=== PATIENT | female | born 1990 | race Caucasian/White ===

== ENCOUNTER 2017-02-02 03:20 | Inpatient (IN) | payer BC ==
[2017-02-02] MEDS ORDERED: Oxytocin 10 Units/1 ML SDV IM ONE (04:48)
[2017-02-02] MEDS ORDERED: Sodium Chloride 0.9% 10 ML Syringe FLUSH PRN (04:48)
[2017-02-02] MEDS ORDERED: Oxytocin/Lactated Ringers 10 UNIT/1,000 ML BAG IV SCH ×2 (05:00→05:30)
[2017-02-02] MEDS ORDERED: Penicillin G Potassium 5 MILLUNITS in Sodium Chloride 0.9% 100 ML IV SCH (05:00)
[2017-02-02] MEDS ORDERED: Lactated Ringers 1,000 ML IV SCH (05:00)
--- NOTE | 2017-02-02 05:01 | PCM.LDHP ---
L&D History of Present Illness - General Date of Service: 02/02/17 Admit Problem/Dx: Patient Status Order with Admit Dx/Problem 02/02/17 04:48 Patient Status [ADT] Routine Admission Diagnosis/Problem Admission Diagnosis/Problem Premature rupture of membranes 02/02/17 04:55 27 yo at 36 1/7 presents to labor and delivery with SROM at home, clear fluid, no contractions, good movement. Routine and uncomplicated pregnatal care. Dates based on certain LMP and within 2 days of 20 week Ultrasound. Pt is on Zoloft for anxiety, started this . AB neg GBS unresulted OBhx: Vaginal delivery at 39 6/7 in 201302/02/17 05:04 Source of Information: Patient History Limitations: Reports: No Limitations - Related Data Allergies/Adverse Reactions: Allergies Allergy/AdvReac Type Severity Reaction Status Date / Time No Known Allergies Allergy Verified 06/18/13 01:29 Home Medications: Home Meds Ferrous Sulfate [Iron] 1 tab PO DAILY 06/18/13 [History] PNV95/Ferrous Fumarate/FA [ Tablet] 1 tab PO DAILY 06/18/13 [History] Ibuprofen [Motrin] 600 mg PO Q4H PRN #60 tablet 06/21/13 [Rx] Past Medical History - Past Surgical History HEENT Surgical History: Reports: Oral Surgery (wisdom teeth) Social & Family History - Family History Respiratory: Reports: Asthma - Tobacco Use Second Hand Smoke Exposure: No - Recreational Drug Use Recreational Drug Use: No H&P Review of Systems - Review of Systems: Review Of Systems: See Below General: Reports: No Symptoms HEENT: Reports: No Symptoms Pulmonary: Reports: No Symptoms Cardiovascular: Reports: No Symptoms Gastrointestinal: Reports: No Symptoms Genitourinary: Reports: No Symptoms Musculoskeletal: Reports: No Symptoms Skin: Reports: No Symptoms Psychiatric: Reports: No Symptoms Neurological: Reports: No Symptoms Hematologic/Lymphatic: Reports: No Symptoms Immunologic: Reports: No Symptoms L&D Exam - Exam Exam: See Below - OB Specific Contraction Duration (sec): irregular Contraction Intensity: Mild Movement: Active Heart Tones: Present Heart Tones per Min: 150 Heart Rate (FHR) Variability: Moderate (6-25 bmp) Presentation: Vertex Estimated Weight: 3200 - Raya Score Raya Score Cervix Position: Midposition Raya Score Consistency: Soft Raya Score Effacement: 0-30% Raya Score Dilation: 1-2 cm Raya Score 's Station: -3 Raya Score Total: 4 - Exam General: Alert, Oriented HEENT: Conjunctiva Clear GI/Abdominal Exam: Normal Bowel Sounds Genitourinary: Normal external exam Skin: Warm, Dry Psychiatric: Alert, Normal Mood Problem List Initiated/Reviewed/Updated: Yes Orders Last 24hrs: Active Orders 24 hr Category Date Time Status Patient Status [ADT] Routine ADT 02/02/17 04:48 Ordered Activity as Tolerated [RC] PFP Care 02/02/17 04:48 Ordered Communication Order [RC] ASDIRECTED Care 02/02/17 04:48 Ordered Communication Order [RC] ASDIRECTED Care 02/02/17 04:48 Ordered Communication Order [RC] ASDIRECTED Care 02/02/17 04:48 Ordered Communication Order [RC] ASDIRECTED Care 02/02/17 04:48 Ordered Heart Tones [RC] ASDIRECTED Care 02/02/17 04:49 Ordered Monitoring [RC] INTERMITTENT Care 02/02/17 04:48 Ordered Notify Provider [RC] ASDIRECTED Care 02/02/17 04:48 Ordered Notify Provider [RC] PFP Care 02/02/17 04:48 Ordered Notify Provider [RC] PRN Care 02/02/17 04:48 Ordered Peripheral IV Care [RC] . DIRECTED Care 02/02/17 04:49 Ordered Vaginal Exam [RC] ASDIRECTED Care 02/02/17 04:48 Ordered Vital Signs [RC] ASDIRECTED Care 02/02/17 04:48 Ordered Vital Signs [RC] PER UNIT ROUTINE Care 02/02/17 04:48 Ordered Nothing Per Oral Diet [DIET] Diet 02/02/17 Lunch Ordered CBC W/O DIFF,HEMOGRAM [HEME] Stat Lab 02/02/17 04:48 Ordered Lactated Ringers [Ringers, Lactated] 1,000 ml Med 02/02/17 05:00 Ordered IV ASDIRECTED Lactated Ringers [Ringers, Lactated] 1,000 ml Med 02/02/17 05:00 Ordered IV ASDIRECTED Oxytocin [Pitocin] Med 02/02/17 04:48 Once 10 unit IM ONETIME ONE Oxytocin/Lactated Ringers [Pitocin in LR 10 Units/1,000 Med 02/02/17 05:00 Ordered ML] 10 unit in 1,000 ml IV TITRATE Penicillin G Potassium [Pfizerpen] 2.5 millunits Med 02/02/17 05:00 Ordered Sodium Chloride 0.9% [Normal Saline] 100 ml IV Q4H Penicillin G Potassium [Pfizerpen] 5 millunits Med 02/02/17 05:00 Ordered Sodium Chloride 0.9% [Normal Saline] 100 ml IV ONETIME Sodium Chloride 0.9% [Saline Flush] Med 02/02/17 04:48 Ordered 10 ml FLUSH ASDIRECTED PRN Electronic Heart Tones Ext w TOCO [WOMSER] Ot 02/02/17 04:48 Ordered Routine Electronic Heart Tones Internal [WOMSER] Per Unit Ot 02/02/17 04:48 Ordered Routine Peripheral IV Insertion Adult [OM.PC] Routine Ot 02/02/17 04:48 Ordered Peripheral IV Insertion Adult [OM.PC] Routine Ot 02/02/17 04:48 Ordered Resuscitation Status Routine Resus Stat 02/02/17 04:48 Ordered Assessment/Plan Comment:: 27 yo at 36 1/7 with PROM at home. Plan: Infant is cephalic on exam. GBS not resulted-start penicillin for prophylaxis. PROM-start pitocin-discussed with pt need to start induce labor at this time with SROM and no contractions. she voices understanding. Pt understands increased risk of infection with prolonged ROM as well as increased risk of section with PROM. she voices understanding.
[2017-02-02] MEDS: Lactated Ringers 1,000 ML IV SCH ×3 (07:38→13:08)
--- NOTE | 2017-02-02 08:43 | PCM.PNLD ---
Labor Progress Note - VS & Meds Vital Signs: Last Vital Signs Temp 98.4 F 02/02/17 03:58 Pulse 97 02/02/17 03:58 Resp 20 02/02/17 03:58 BP 124/80 02/02/17 03:58 Pulse Ox 98 02/02/17 03:58 Active Medications: Current Medications Lactated Ringer's (Ringers, Lactated) 1,000 mls @ 100 mls/hr IV ASDIRECTED JUAN Last Admin: 02/02/17 07:38 Dose: 100 mls/hr Lactated Ringer's (Ringers, Lactated) 1,000 mls @ 40 mls/hr IV ASDIRECTED JUAN Last Admin: 02/02/17 05:44 Dose: 40 mls/hr Oxytocin/Lactated Ringer's (Pitocin In Lr 10 Units/1,000 Ml) 10 unit in 1,000 mls @ 12 mls/hr IV TITRATE JUAN; 2 MUNITS/MIN PRN Reason: Protocol Penicillin G Potassium 5 (millunits/ Sodium Chloride) 100 mls @ 55 mls/hr IV ONETIME JUAN Last Admin: 02/02/17 05:45 Dose: 55 mls/hr Penicillin G Potassium 2.5 (millunits/ Sodium Chloride) 100 mls @ 55 mls/hr IV Q4H JUAN Oxytocin/Lactated Ringer's (Pitocin In Lr 10 Units/1,000 Ml) 10 unit in 1,000 mls @ 12 mls/hr IV TITRATE JUAN; 2 MUNITS/MIN PRN Reason: Protocol Last Titration: 02/02/17 06:32 Dose: 0 munits/min, 0 mls/hr Sodium Chloride (Saline Flush) 10 ml FLUSH ASDIRECTED PRN PRN Reason: Keep Vein Open Discontinued Medications Oxytocin (Pitocin) 10 unit IM ONETIME ONE Stop: 02/02/17 04:49 - Uterine Contractions Contraction Frequency (min): Every 15 minutes Contraction Duration (sec): irregular Contraction Intensity: Mild - Monitoring Monitor Mode: Doppler/Auscultation Heart Rate (FHR) Variability: Moderate (6-25 bmp) - Vaginal Exam Dilation (cm): 2+ Effacement (Percent): 90 Station: -3 Cervical Position: Midposition Sterile Vaginal Exam Performed By: Jennifer Garza - Labor Progress (Free Text) Labor Progress: The patient is a 27-yo 36 1/7 weeks. She presented to L&D around 5am. She reports spontaneous rupture of membranes while sleeping last night. She is having mild contractions, but appears to be comfortable. She is accompanied by her , Medhat. She delivered her first baby at 39 6/7 weeks. Her first labor lasted about 36 hours. Baby was 3.033 kg (6 lb 11 oz). She is AB negative and antibody negative. She received Rhogam at 27 weeks. AmniSure is positive. She is leaking pink-tinged amniotic fluid. No meconium staining. She is receiving Pitocin 2 miliunits/min IV per protocol. There were a heart decelerations earlier this morning, but heart tones show good variability at this time. Her Group B Strep status is unknown. She received her first dose of Penicillin G. She will receive her second dose at 09:00. She received an epidural with her previous delivery. She is open to an epidural with this delivery. She is taking Sertraline 50mg per depression. Her depressive symptoms began during this . She did not have baby blues of pp depression with her previous . She denies FH of bleeding/clotting disorders or congenital heart disease. Assessment: 1. intrauterine at 36 1/7 weeks gestation, spontaneous rupture membranes in early labor 2. Group B strep positive status 3. Patient desires epidural Plan: 1. Anticipate normal spontaneous vaginal delivery. Pitocin augmentation as indicated 2. Group B strep prophylaxis per protocol with penicillin G 3. Epidural per patient request 4. CBC
[2017-02-02] MEDS: Penicillin G Potassium 2.5 MILLUNITS in Sodium Chloride 0.9% 100 ML IV SCH ×2 (09:22→13:07)
[2017-02-02] MEDS ORDERED: ePHEDrine 50 MG/ML SDV IVPUSH PRN (11:01)
[2017-02-02] MEDS ORDERED: Ondansetron 4 MG/2 ML SDV IVPUSH PRN (11:01)
[2017-02-02] MEDS ORDERED: fentaNYL 100 MCG/2 ML SDV EPIDUR PRN (11:01)
--- NOTE | 2017-02-02 11:04 | PCM.PREANE ---
Preanesthetic Assessment - Anesthesia/Transfusion/Family Hx Anesthesia History: Prior Anesthesia Without Reaction Family History of Anesthesia Reaction: No Transfusion History: No Prior Transfusion(s) Intubation History: Unknown - Review of Systems General: No Symptoms Pulmonary: No Symptoms Cardiovascular: No Symptoms Gastrointestinal: No Symptoms (GERD), Nausea Neurological: No Symptoms Other: Reports: Sinus Problem (runny nose/ deviated septum), Depression, Anxiety - Physical Assessment NPO Status Date: 02/02/17 NPO Status Time: 08:00 Pulse: 97 O2 Sat by Pulse Oximetry: 98 Respiratory Rate: 20 Blood Pressure: 124/80 Temperature: 36.9 C Vital Signs: Last Vital Signs Temp 36.9 C 02/02/17 03:58 Pulse 97 02/02/17 03:58 Resp 20 02/02/17 03:58 BP 124/80 02/02/17 03:58 Pulse Ox 98 02/02/17 03:58 Height: 1.6 m Weight: 92.896 kg ASA Class: 2 Mental Status: Alert & Oriented x3 Airway Class: Mallampati = 2 Dentition: Reports: Normal Dentition, Caries Thyro-Mental Finger Breadths: 3 Mouth Opening Finger Breadths: 3 ROM/Head Extension: Full Lungs: Clear to Auscultation, Normal Respiratory Effort Cardiovascular: Regular Rate, Regular Rhythm, No Murmurs - Lab Values: Laboratory Last Values WBC 13.43 K/mm3 (3.98-10.04) H 02/02/17 05:10 RBC 4.13 M/mm3 (3.98-5.22) 02/02/17 05:10 Hgb 10.6 gm/L (11.2-15.7) L 02/02/17 05:10 Hct 32.6 % (34.1-44.9) L 02/02/17 05:10 MCV 78.9 fl (79.4-94.8) L 02/02/17 05:10 MCH 25.7 pg (25.6-32.2) 02/02/17 05:10 MCHC 32.5 g/dl (32.2-35.5) 02/02/17 05:10 RDW Std Deviation 39.0 fL (36.4-46.3) 02/02/17 05:10 Plt Count 227 K/mm3 (182-369) 02/02/17 05:10 MPV 10.2 fl (9.4-12.3) 02/02/17 05:10 Above labs reviewed and noted - Allergies Allergies/Adverse Reactions: Allergies Allergy/AdvReac Type Severity Reaction Status Date / Time No Known Allergies Allergy Verified 06/18/13 01:29 - Anesthesia Plan Pre-Op Medication Ordered: None - Acknowledgements Anesthesia Type Planned: Epidural Pt an Appropriate Candidate for the Planned Anesthesia: Yes Alternatives and Risks of Anesthesia Discussed w Pt/Guardian: Yes Pt/Guardian Understands and Agrees with Anesthesia Plan: Yes 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: - Past Surgical History HEENT Surgical History: Reports: Oral Surgery - SUBSTANCE USE Smoking Status *Q: Never Smoker Second Hand Smoke Exposure: No Recreational Drug Use History: No - HOME MEDS Home Medications: Home Meds Ferrous Sulfate [Iron] 1 tab PO DAILY 06/18/13 [History] PNV95/Ferrous Fumarate/FA [ Tablet] 1 tab PO DAILY 06/18/13 [History] Ibuprofen [Motrin] 600 mg PO Q4H PRN #60 tablet 06/21/13 [Rx] - CURRENT (IN HOUSE) MEDS Current Meds: Current Medications Lactated Ringer's (Ringers, Lactated) 1,000 mls @ 100 mls/hr IV ASDIRECTED JUAN Last Admin: 02/02/17 10:53 Dose: 100 mls/hr Lactated Ringer's (Ringers, Lactated) 1,000 mls @ 40 mls/hr IV ASDIRECTED JUAN Last Admin: 02/02/17 05:44 Dose: 40 mls/hr Oxytocin/Lactated Ringer's (Pitocin In Lr 10 Units/1,000 Ml) 10 unit in 1,000 mls @ 12 mls/hr IV TITRATE JUAN; 2 MUNITS/MIN PRN Reason: Protocol Penicillin G Potassium 5 (millunits/ Sodium Chloride) 100 mls @ 55 mls/hr IV ONETIME JUAN Last Admin: 02/02/17 05:45 Dose: 55 mls/hr Penicillin G Potassium 2.5 (millunits/ Sodium Chloride) 100 mls @ 55 mls/hr IV Q4H JUAN Last Admin: 02/02/17 09:22 Dose: 55 mls/hr Oxytocin/Lactated Ringer's (Pitocin In Lr 10 Units/1,000 Ml) 10 unit in 1,000 mls @ 12 mls/hr IV TITRATE JUAN; 2 MUNITS/MIN PRN Reason: Protocol Last Titration: 02/02/17 06:32 Dose: 0 munits/min, 0 mls/hr Sodium Chloride (Saline Flush) 10 ml FLUSH ASDIRECTED PRN PRN Reason: Keep Vein Open Discontinued Medications Oxytocin (Pitocin) 10 unit IM ONETIME ONE Stop: 02/02/17 04:49
[2017-02-02] MEDS ORDERED: Bupivacaine/fentaNYL/NS 100 ML Bag EPIDUR SCH (11:15)
[2017-02-02] MEDS ORDERED: Witch Hazel Medicated Pads 100/Jar TOP PRN (15:37)
[2017-02-02] MEDS ORDERED: Docusate Sodium 100 MG Cap PO PRN (15:37)
[2017-02-02] MEDS ORDERED: Lanolin 100% Cream 7 GM Tube TOP PRN (15:37)
[2017-02-02] MEDS ORDERED: Benzocaine/Menthol 20%-0.5% Spray 56 GM Canister TOP PRN (15:37)
--- NOTE | 2017-02-02 16:40 | PCM.SN ---
- Free Text/Narrative Note: Kristal is a 27-year-old 2 now para [birth year] white female who was admitted earlier this morning at 36-1/7 weeks gestational age with reports of spontaneous rupture membranes at 0230 hrs. on the date of delivery 02/02/2017. She is admitted into labor and delivery and found to have confirmed spontaneous rupture membranes with clear amniotic fluid. She is mariela minimally and therefore was augmented with Pitocin. She became completely dilated at approximately 1445 hrs. She pushed for about 4 contractions and then delivered a viable, calderon, male infant with Apgars of 8 and 9, a weight of 2720 g (5 pounds 15.9 ounces), a length of 18.5 inches at 1509 hrs. on 02/02/2017. Baby had a nuchal cord 1 which was reduced over the baby's body because it was moderately tight. The baby was placed on the mom's abdomen after delivery. The cord was clamped 2 and cut. No lacerations resulted. The placenta delivered intact, appeared complete and was discarded per patient desire.Estimated blood loss was 100 mL. Patient had Pitocin administered via IV after the baby delivered. She plans to breast-feed. Condition: Good
[2017-02-02] MEDS: Acetaminophen 325 MG Tab PO PRN (17:11)
--- NOTE | 2017-02-02 18:33 | PCM48HPAN ---
Post Anesthesia Note - EVALUATION WITHIN 48HRS OF ANESTHETIC Vital Signs in Normal Range: Yes Patient Participated in Evaluation: Yes Respiratory Function Stable: Yes Airway Patent: Yes Cardiovascular Function Stable: Yes Hydration Status Stable: Yes Pain Control Satisfactory: Yes Nausea and Vomiting Control Satisfactory: Yes Mental Status Recovered: Yes
[2017-02-03] MEDS: Ibuprofen 600 MG Tab PO PRN ×4 (00:44→17:13)
[2017-02-03] MEDS: Acetaminophen 325 MG Tab PO PRN ×3 (03:24→20:54)
--- NOTE | 2017-02-03 10:43 | PCM.SN ---
- Free Text/Narrative Note: Kristal is a 27-yo female who is post-vaginal delivery day 1. She presented yesterday with spontaneous rupture of membranes at 0230 hrs. She delivered a healthy, baby boy at 1509 hrs. No lacerations resulted. Today the patient is feeling well. She reports bleeding is decreased. She is breast- feeding and states it is going well. Pain is manageable with ibuprofen 600mg q4hrs. Patient is urinating without difficulty. She denies foul smelling discharge, fever, or chills. Hgb has decreased from 10.6 to 9.9 since yesterday. Vitals signs are WNL. Alert and orientated. Abdomen is soft, non-tender, and non-distended. Uterus is soft and below the umbilicus. LE edema is minimal. Assessment: 1. Normal post- day 1 Plan: 1. Continue post- care
[2017-02-04] MEDS: Ibuprofen 600 MG Tab PO PRN (04:15)
[2017-02-04 04:30] VITALS: BP 125/47
--- NOTE | 2017-02-04 06:59 | PCM.DCSUM1 ---
Discharge Summary - Hospital Course Free Text/Narrative:: jana is a 27-year-old 2 now para /03/12 white female who was admitted earlier this morning at 36-1/7 weeks gestational age with reports of spontaneous rupture membranes at 0230 hrs. on the date of delivery 02/02/2017. She is admitted into labor and delivery and found to have confirmed spontaneous rupture membranes with clear amniotic fluid. She is mariela minimally and therefore was augmented with Pitocin. She became completely dilated at approximately 1445 hrs. She pushed for about 4 contractions and then delivered a viable, calderon, male with Apgars of 8 and 9, a weight of 2720 g (5 pounds 15.9 ounces), a length of 18.5 inches at 1509 hrs. on 02/02/2017. Baby had a nuchal cord 1 which was reduced over the baby's body because it was moderately tight. The baby was placed on the mom's abdomen after delivery. The cord was clamped 2 and cut. No lacerations resulted. The placenta delivered intact, appeared complete and was discarded per patient desire.Estimated blood loss was 100 mL. Patient had Pitocin administered via IV after the baby delivered. She is breast-feeding at the present time. She has had a normal recovery . Baby is 2 days because of 36 weeks status. She is voiding well, ambulating without concerns and has minimal lochia. She is desiring discharge today. - Discharge Data Discharge Date: 02/04/17 Discharge Disposition: Home, Self-Care 01 Condition: Good - Patient Instructions Diet: Regular Diet as Tolerated (Nursing diet with increased calories and calcium is recommended) Activity: As Tolerated (No intercourse or tampons until bleeding resolves) Driving: May Drive Today Showering/Bathing: May Shower (may take a bath) Notify Provider of: Fever, Increased Pain, Swelling and Redness, Nausea and/or Vomiting - Discharge Plan Home Medications: Home Meds Ferrous Sulfate [Iron] 1 tab PO DAILY 06/18/13 [History] PNV95/Ferrous Fumarate/FA [ Tablet] 1 tab PO DAILY 06/18/13 [History] Ibuprofen [Motrin] 600 mg PO Q4H PRN #60 tablet 06/21/13 [Rx] Acetaminophen [Tylenol] 650 mg PO Q4H PRN tablet 02/04/17 [Rx] Docusate Sodium [Colace] 100 mg PO BID PRN cap 02/04/17 [Rx] Ibuprofen [IJD: Ibuprofen] 600 mg PO Q4H PRN tablet 02/04/17 [Rx] Nabil Winkler [Tucks] 1 pad TOP ASDIRECTED PRN pad 02/04/17 [Rx] Referrals: Charlee Santizo MD [Primary Care Provider] - (Return to clinic-Dr. Barrett-4-6 weeks.) - Discharge Summary/Plan Comment DC Time >30 min.: No Discharge Summary/Plan Comment: Discharge instructions: 1. Discharge home 2. Diet, activity and follow-up discussed with patient. Recommend nursing diet with increased calories and calcium. 3. Precautions given concern increased pain, bleeding, temperature, signs/ symptoms of DVT/PE. 4. Medications per home medication was printed, discussed with and given to the patient. 5. Return to clinic-Dr. Barrett-4-6 weeks. Diagnosis: Term -delivered Condition: Good - Patient Data Vitals - Most Recent: Last Vital Signs Temp 36.8 C 02/04/17 04:17 Pulse 63 02/04/17 04:17 Resp 18 02/04/17 04:17 BP 125/47 L 02/04/17 04:17 Pulse Ox 97 02/04/17 04:17 Weight - Most Recent: 92.896 kg I&O - Last 24 hours: Intake & Output 02/03/17 02/03/17 02/04/17 14:59 22:59 06:59 Intake Total 180 200 Balance 180 200 Med Orders - Current: Current Medications Acetaminophen (Tylenol) 650 mg PO Q4H PRN PRN Reason: mild pain or fever Last Admin: 02/03/17 20:54 Dose: 650 mg Benzocaine/Menthol (Dermoplast Pain Relief [place]) 0 gm TOP ASDIRECTED PRN PRN Reason: Perineal Comfort Measure Last Admin: 02/02/17 16:13 Dose: 1 canister Docusate Sodium (Colace) 100 mg PO BID PRN PRN Reason: Constipation Emollient Ointment (Lansinoh Hpa) 0 gm TOP ASDIRECTED PRN PRN Reason: Sore Nipples Ibuprofen (Motrin) 600 mg PO Q4H PRN PRN Reason: Mild pain or fever Last Admin: 02/04/17 04:15 Dose: 600 mg Witch Cathi (Tucks) 1 pad TOP ASDIRECTED PRN PRN Reason: Hemorrhoid pain Last Admin: 02/02/17 16:14 Dose: 1 container Discontinued Medications Ephedrine Sulfate (Ephedrine Sulfate) 5 mg IVPUSH ASDIRECTED PRN PRN Reason: Hypotension Fentanyl (Sublimaze) 100 mcg EPIDUR Q3H PRN PRN Reason: Pain Last Admin: 02/02/17 11:27 Dose: 100 mcg Fentanyl/Bupivacaine HCl (Fentanyl/Bupivacaine/Ns 2 Mcg-0.125% 100 Ml) 100 ml EPIDUR ASDIRECTED JUAN Last Admin: 02/02/17 11:27 Dose: 100 ml Lactated Ringer's (Ringers, Lactated) 1,000 mls @ 100 mls/hr IV ASDIRECTED JUAN Last Admin: 02/02/17 13:08 Dose: 100 mls/hr Lactated Ringer's (Ringers, Lactated) 1,000 mls @ 40 mls/hr IV ASDIRECTED JUAN Last Admin: 02/02/17 05:44 Dose: 40 mls/hr Oxytocin/Lactated Ringer's (Pitocin In Lr 10 Units/1,000 Ml) 10 unit in 1,000 mls @ 12 mls/hr IV TITRATE JUAN; 2 MUNITS/MIN PRN Reason: Protocol Last Titration: 02/02/17 10:45 Dose: 8 munits/min, 48 mls/hr Penicillin G Potassium 5 (millunits/ Sodium Chloride) 100 mls @ 55 mls/hr IV ONETIME JUAN Last Admin: 02/02/17 05:45 Dose: 55 mls/hr Penicillin G Potassium 2.5 (millunits/ Sodium Chloride) 100 mls @ 55 mls/hr IV Q4H JUAN Last Admin: 02/02/17 13:07 Dose: 55 mls/hr Oxytocin/Lactated Ringer's (Pitocin In Lr 10 Units/1,000 Ml) 10 unit in 1,000 mls @ 12 mls/hr IV TITRATE JUAN; 2 MUNITS/MIN PRN Reason: Protocol Last Titration: 02/02/17 06:32 Dose: 0 munits/min, 0 mls/hr Ondansetron HCl (Zofran) 4 mg IVPUSH ONETIME PRN PRN Reason: Nausea/Vomiting Oxytocin (Pitocin) 10 unit IM ONETIME ONE Stop: 02/02/17 04:49 Last Admin: 02/02/17 17:45 Dose: Not Given Sodium Chloride (Saline Flush) 10 ml FLUSH ASDIRECTED PRN PRN Reason: Keep Vein Open *Q Meaningful Use (DIS) - VTE *Q VTE Criteria *Q: - Stroke *Q Stroke Criteria *Q: - AMI *Q AMI Criteria *Q:
== END 2017-02-04 10:00 | disposition home or self-care (01) | DRG 560 ==
LOC: JD.OBCHECK 03:20 → JD.OB 03:23 → JD.OBCHECK 05:28 → JD.OB 05:29 → INTOOBSV 15:28 → OBSVTOIN 15:28 → JD.OB 15:28 → UNDODISIN 02-04 10:00
PROVIDERS: ADMIT Family Medicine; ATTEND Family Medicine
PROC: 10E0XZZ Delivery of Products of Conception, External Approach (ICD-10-PCS; principal; 2017-02-02)
PROC: 00HU33Z Insertion of Infusion Device into Spinal Canal, Percutaneous Approach (ICD-10-PCS; 2017-02-02)
PROC: 3E0R3BZ Introduction of Anesthetic Agent into Spinal Canal, Percutaneous Approach (ICD-10-PCS; 2017-02-02)
DX: O42.013 Preterm premature rupture of membranes, onset of labor within 24 hours of rupture, third trimester (principal); O69.81X0 Labor and delivery complicated by cord around neck, without compression, not applicable or unspecified; Z3A.36 36 weeks gestation of pregnancy; Z37.0 Single live birth; O99.824 Streptococcus B carrier state complicating childbirth
CPT/HCPCS: 36415; 51702; 59409; 85025; 85027; A9270-GY; J2540; J2590; J3010; J7030; J7120

== ENCOUNTER 2017-05-12 18:21 | Emergency (ER) | payer BC ==
[2017-05-12 18:30] VITALS: BP 128/83
--- NOTE | 2017-05-12 19:04 | EDM.PDOC ---
ED HPI GENERAL MEDICAL PROBLEM - General Chief Complaint: Lower Extremity Injury/Pain Stated Complaint: L LEG PAIN Time Seen by Provider: 05/12/17 18:39 Source of Information: Reports: Patient History Limitations: Reports: No Limitations - History of Present Illness INITIAL COMMENTS - FREE TEXT/NARRATIVE: 27-year-old female presents for evaluation and treatment of injury to the left ankle. Injury occurred this morning. She states that she slipped on the ice. She believes she landed on an inverted ankle but is unsure. Reports hearing a popping sound. She states that she has attempted to walk on the ankle but has significant pain. Reports pain primarily to the lateral left malleolus. Reports significant swelling and bruising to the lateral malleolus. No numbness or tingling to the foot. No previous trauma to the foot or ankle. Patient reports she did not hit her head when she fell. Onset: Today Location: Reports: Lower Extremity, Left Left Ankle Pain Score (Numeric/FACES): 3 - Related Data Allergies Allergy/AdvReac Type Severity Reaction Status Date / Time No Known Allergies Allergy Verified 05/12/17 18:30 Home Meds: Home Meds Sertraline HCl [Sertraline HCl] 50 mg PO DAILY 05/12/17 [History] Past Medical History [employer] History: Reports: - Past Surgical History HEENT Surgical History: Reports: Oral Surgery Social & Family History - Family History Family Medical History: Noncontributory Respiratory: Reports: Asthma - Tobacco Use Smoking Status *Q: Never Smoker Second Hand Smoke Exposure: No - Caffeine Use Caffeine Use: Reports: Coffee - Recreational Drug Use Recreational Drug Use: No Review of Systems - Review of Systems Review Of Systems: See Below Musculoskeletal: Reports: Joint Pain (left ankle), Joint Swelling (left ankle) Skin: Reports: Bruising (left lateral malleolus). Denies: Wound Neurological: Reports: Difficulty Walking. Denies: Numbness, Syncope, Tingling ED EXAM, GENERAL - Physical Exam Exam: See Below Exam Limited By: No Limitations General Appearance: Alert, WD/WN, No Apparent Distress Respiratory/Chest: No Respiratory Distress Cardiovascular: Normal Peripheral Pulses, Regular Rate, Rhythm Peripheral Pulses: 2+: Posterior Tibial (L), Posterior Tibial (R), Dorsalis Pedis (L), Dorsalis Pedis (R) Extremities: Normal Inspection, Limited Range of Motion (unable to flex/extend left ankle), Other (reports tenderness to palpation to the left lateral malleolus) Neurological: Alert, Oriented, Normal Cognition Psychiatric: Normal Affect, Normal Mood Skin Exam: Warm, Dry, Ecchymosis (left lateral malleolus) ED TRAUMA EXTREMITY PROCEDURES - Splinting Left Lower Extremity Splint Site: lower leg Pre-Procedure NV Status: Normal Post-Procedure NV Status: Normal Splint Material: Other (orthoglass) Splint Design: Stirrup, Posterior Applied & Form Fitted By: Provider, Nurse Provider Post-Splint Application NV Check: NV Status Normal, Good Position Complications: No Course - Vital Signs Last Recorded V/S: Last Vital Signs Temp 36.0 C 05/12/17 18:26 Pulse 80 05/12/17 18:26 Resp 16 05/12/17 18:26 BP 128/83 05/12/17 18:26 Pulse Ox 100 05/12/17 18:26 - Orders/Labs/Meds Orders: Active Orders 24 hr Category Date Time Status Ankle Min 3V Lt [CR] Stat Exams 05/12/17 18:49 Ordered - Re-Assessments/Exams Free Text/Narrative Re-Assessment/Exam: 05/12/17 19:48 X-ray shows an intra-articular fracture of the left distal fibula. Patient was splinted in a posterior slab and stirrup splint. She tolerated this well. patient declined narcotic pain medication at this time as she is breast- feeding. She will use Tylenol Motrin. She will notify us if she would like something stronger for pain. Follow-up with orthopedics this week. Discharge instructions as documented. Departure - Departure Time of Disposition: 19:53 Disposition: Home, Self-Care 01 Condition: Fair Clinical Impression: Left fibular fracture Qualifiers: Encounter type: initial encounter Fibula location: distal Fracture type: closed Fracture morphology: unspecified fracture morphology Qualified Code(s): S82.832A - Other fracture of upper and lower end of left fibula, initial encounter for closed fracture - Discharge Information Instructions: Fibular Fracture Re[facility] Referrals: Charlee Santizo MD [Primary Care Provider] - Eren Ortega MD [Physician] - Forms: ED Department Discharge Additional Instructions: keep the splint at all times. Keep covered with a bag or seran wrap when exposed to water. use the crutches at all times. Elevate as much as possible. Ice, even over the splint. Follow-up with orthopedics this week. Recommend Dr. Cardozo or Dr. Ortega. Call [phone] Ortega. Call [phone] Cardozo. Please let them know that you were seen in the ER for an intrarticular distal fibula fracture. Tylenol and Motrin as needed for pain relief. Please return to the ER if your symptoms change or worsen. - My Orders Last 24 Hours: My Active Orders 05/12/17 18:49 Ankle Min 3V Lt [CR] Stat - Assessment/Plan Last 24 Hours: My Active Orders 05/12/17 18:49 Ankle Min 3V Lt [CR] Stat
--- NOTE | 2017-05-13 09:15 | CR ---
Left ankle: Four views of the left ankle were obtained. Comparison: No prior ankle study. Slightly displaced lateral malleolar fracture is identified. Distal tibia appears to be intact. Soft tissue swelling is identified. Impression: 1. Slightly displaced lateral malleolar fracture with soft tissue swelling. Diagnostic code #3
== END 2017-05-12 20:15 | disposition home or self-care (01) ==
LOC: JD.ED 18:21
DX: S82.832A Other fracture of upper and lower end of left fibula, initial encounter for closed fracture (principal); Z79.899 Other long term (current) drug therapy; W00.0XXA Fall on same level due to ice and snow, initial encounter; X50.9XXA Other and unspecified overexertion or strenuous movements or postures, initial encounter
CPT/HCPCS: 29515; 73610-26-LT; 73610-LT; 99283-25